=== PATIENT | male | born 1955 | race Caucasian/White ===

== ENCOUNTER 2019-04-18 08:36 | Emergency (ER) | payer OTHER, SELFPAY ==
[2019-04-18 08:37] VITALS: BP 193/111; PULSE 75; RESP 17; TEMP 36.9; O2SAT 96; BMI 24.7
--- NOTE | 2019-04-18 08:43 | EKG12_ITS ---
Test Reason : Blood Pressure : / mmHG Vent. Rate : 073 BPM Atrial Rate : 073 BPM P-R Int : 164 ms QRS Dur : 096 ms QT Int : 390 ms P-R-T Axes : 056 057 075 degrees QTc Int : 429 ms Normal sinus rhythm Normal ECG Confirmed by RUDY FLORES, MORIS ([id number]), greeting card editor TANESHA MANUEL ([id number]) on 04/22/2019 2:16:31 PM Referred By: Fredo Garcia Confirmed By:TERELL GRANT MD
--- NOTE | 2019-04-18 08:44 | CT_ITS ---
STUDY: CT BRAIN WITHOUT CONTRAST REASON FOR EXAM: Male, 63 years old. WEAKNESS, SYNCOPE RADIATION DOSAGE (If Supplied By Facility): CTDIvol = ( 44.99 ) mGy, DLP = ( 846.73 ) mGycm TECHNIQUE: Transaxial CT imaging of the brain was performed without administration of intravenous contrast material. Individualized dose optimization techniques were used for this CT. COMPARISON: No relevant priors. FINDINGS: Normal soft tissue structures. Normal calvarium. There is mild cerebral atrophy with widening of the extra-axial spaces and ventricular dilatation. There are areas of decreased attenuation within the white matter tracts of the supratentorial brain, consistent with microvascular disease changes. Tiny hypodensity in the body of the left caudate nucleus. Tiny lucency in the left thalamus. Tiny lacunae in the left basal ganglion. Normal brainstem. Normal cerebellum. There is no intracranial hemorrhage. There are no findings of an acute ischemic infarction. Partial opacification of the maxillary sinuses worse on the right side as well as air-fluid level in the right sphenoid sinus. Mucosal thickening of the ethmoid sinuses. CT/Brain/Head without Contrast IMPRESSION: Tiny lucencies in the left basal ganglion as well as the left thalamus and left pacheco radiata. Sinusitis. Electronically Signed: Dewayne Rahman, at 9:13 EST , Service support ,
--- NOTE | 2019-04-18 08:49 | RAD_ITS ---
STUDY: X-RAY CHEST REASON FOR EXAM: Male, 63 years old. C/O MULTIPLE EPISODES OF SYNCOPE SINCE LAST MONDAY, CP, HTN TECHNIQUE: Single AP portable view of the chest. COMPARISON: None. FINDINGS: EKG electrodes are seen. Minimal increased markings at the left lung base suggestive of left basilar atelectasis. There is no demonstrated pleural abnormality. Normal size heart. Normal mediastinum and rick. Normal visualized pulmonary arteries. Normal visualized aortic arch and descending thoracic aorta. There are diffuse degenerative changes of the visualized thoracic spine. Normal visualized ribs, clavicles, and shoulders. There is no demonstrated abnormality of the visualized soft tissue structures of the upper abdomen. RAD/Chest 1 View (Portable) IMPRESSION: Mild increased markings at the left lung base suggestive of left basilar atelectasis. Electronically Signed: Dewayne Rahman, at 9:02 EST , Service support ,
[2019-04-18 08:50] LABS: Absolute Lymphocyte Count 1.99 X10^3/uL (0.83-4.51); Absolute Neutrophil Count 5.2 X10^3/uL (2.0-7.7); Basophil# 0.04 X10^3/uL; Basophil% 0.5 % (0-1); Eosinophil# 0.19 X10^3/uL; Eosinophils% 2.3 % (0-5); Hematocrit 41.1 % (40-54); Hemoglobin 13.6 g/dL (13.0-16.5); Lymphocyte # 1.99 X10^3/ul (4.0); Mean Corp Hgb Conc 33.1 g/dL (32-36); Mean Corpuscular Hgb 29.4 pg (27.0-32.0); Mean Corpuscular Volume 88.8 fL (80-94); Mean Platelet Vol. 10.2 fl (6.2-12.0); Monocyte# 0.72 X10^3/uL; Monocyte% 8.7 % (0-10); NRBC Flagged by Analyzer 0 % (0-5); Neutrophil # 5.19 X10^3/uL (2.7-7.7); Neutrophil % 62.6 % (47-70); Platelet Count 274 K/mm3 (150-450); RBC Distribution Width CV 13.9 % (11.6-14.6); RBC Distribution Width SD 44.9 fl (35.1-43.9); Red Blood Count 4.63 M/mm3 (4.6-6.2); White Blood Count 8.3 K/mm3 (4.4-11.0)
--- NOTE | 2019-04-18 09:02 | ED.VIS.GEN ---
History of Present Illness Chief Complaint: Syncope Informant: Patient, Family Onset: Weeks Maximum Severity: Mild Narrative: Patient presents with family complaining of syncopal episodes. He denies any past history, indicates has not been ill other than a chronic cough,. He reports that about 1 week ago he was driving home he appears to have passed out was late coming home his family found him in his vehicle apparently sleeping in the cement mixer driver seat, he was aroused and taken home he did not recall being ill at that time anyway he had no incontinence he was not debilitated in any fashion. Then yesterday while at work sitting doing paperwork indicates he again seemed to have syncope for about 5 minutes while seated he woke on his own did not injure himself he had no incontinence no obvious seizure activity he spoke with his family doctor today and was asked to come to the emergency department for evaluation. He has no history of VA PE DVT seizure or stroke he indicates he is otherwise doing well he works driving a tow motor he is able to do all of his daily activities and work activities that difficulty, he is eating and drinking well bowel and bladder habits are normal review of systems are negative Past Medical History - Allergies and Home Meds Allergies/Adverse Reactions: Allergies No Known Allergies Allergy (Verified 04/18/19 08:41) Past Medical History: - Smoking Status: Current every day smoker Review of Systems ROS: - He denies General: Denies: Chills, Fever, Sweats Eyes: Denies: Visual changes - bilaterally, Diplopia ENT: Denies: Rhinorrhea, Sore throat Cardiovascular: Denies: Chest pain, Palpitations Respiratory: Denies: Dyspnea, Cough, Dyspnea on exertion Gastrointestinal: Denies: Abdominal pain, Nausea, Vomiting, Diarrhea, Melena, Hematochezia Genitourinary: Denies: Dysuria, Hematuria, Frequency Musculoskeletal: Denies: Back pain, Extremity Pain Skin: Denies: Rash, Wounds Neurological: Reports: - - Syncope as above. Denies: Headache, Weakness, Numbness Physical Exam Vital Signs/Narrative: Vital Signs Temp Pulse Resp BP Pulse Ox 04/18/19 08:37 98.5 F 75 17 193/111 H 96 General: Well nourished, Well developed, No Acute Distress Head: Normocephalic, Atraumatic Eyes: Perrl, EOMI ENT: Moist mucous membranes, No rhinorrhea Neck: Supple, Nontender Cardiovascular: Regular rate, Regular rhythm, No murmurs Respiratory: No distress, CTA bilaterally, Chest nontender Abdomen: Soft, Nontender, Nondistended, Normal bowel sounds Back: Nontender, Normal Inspection Extremities: Nontender, No edema Skin: Normal color, No rash Neurological: Alert, Oriented x3, Cranial nerves II-XII grossly intact, Normal Strength, Normal Sensation Psychological: Normal affect, Normal Mood Diagnostic/Tx/Re-eval - Medical Decision Making The patient's vital signs and exam are unremarkable he is awake and alert neurologically he is normal NIH 0 his EKG shows a sinus rhythm rate of 70 no injury pattern intervals normal see that report, Given all the above screening labs head CT The patient screening labs are all generally unremarkable, the head CT shows tiny lucencies in a few areas see those reports nothing acute they do note of sinusitis Discussed all the above with the patient and his [id number] discussed admission with the patient given all the above for further management and diagnostic evaluation we discussed differential discussed the concept of syncope life-threatening etiologies etc. he adamantly refused despite the urging of his roogpk-jf-rez to be admitted he does agree to follow-up with his outpatient providers Dr. Gilliam he will be started on Augmentin for the sinusitis he will rest avoid driving or operating machinery and return for change in symptoms, we will notify Dr. Zaman of the above Home stable declined admission Final impression, syncope, sinusitis ED Disposition - Plan for ED Patient: Diagnosis: Syncope, Sinusitis Instructions: SYNCOPE, Unk Cause, SINUSITIS, Abx Tx Prescriptions: Amox/Clavulanate Tablet [Augmentin Tablet] 875 mg PO Q12H #20 tab Prescription Printed Fluticasone Propionate [Flonase Allergy Relief] 15.8 ml NS BID #1 spray.susp Prescription Printed
[2019-04-18 09:07] LABS: Anion Gap 5 (5-15); BUN 16 mg/dL (7-18); BUN/Creat Ratio 14.3 RATIO (10-20); Calcium,Total 9.1 mg/dL (8.5-10.1); Chloride 103 mmol/L (98-107); Creatinine, Serum 1.12 mg/dL (0.70-1.30); EST Glomerular Filtration Rate 71 mL/min (>60); Est Glom Filt Rate - Afr Amer 86 mL/min (>60); Estimated Creatinine Clearance 78.28 ml/min; Glucose 87 mg/dL (74-106); Potassium 3.7 mmol/L (3.5-5.1); Sodium Level 136 mmol/L (136-145)
[2019-04-18 10:16] VITALS: BP 163/89; PULSE 68; RESP 16; O2SAT 96
[2019-04-18] MEDS: 0.9% Normal Saline 1,000 ML 999 ML IV (10:16)
[2019-04-18] MEDS: Ceftriaxone 1 GM/50 ML BAG IV (10:21)
== END 2019-04-18 11:25 | disposition home or self-care (01) ==
PROVIDERS: Emergency Provider Emergency Medicine; PCP Family Medicine
DX: R55 Syncope and collapse (principal); J32.9 Chronic sinusitis, unspecified; F17.200 Nicotine dependence, unspecified, uncomplicated
CPT/HCPCS: 36415; 70450; 71045; 80048; 80076; 80307; 82607; 83735; 84134; 84443; 84484; 85025; 93005; 96365; 99284; J7030; J7040; A4216

== ENCOUNTER → 2019-04-19 11:06 | Outpatient (CLI) | payer OTHER, SELFPAY ==
[2019-04-18 08:37] VITALS: BMI 24.7
[2019-04-19 13:05] LABS: Erythrocyte Sedimentation Rate 24 mm/hr (0-20)
[2019-04-19 13:36] LABS: AST(SGOT) 27 U/L (15-37); Alanine Aminotransfer ALT/SGPT 26 U/L (16-61); Albumin, Serum 3.2 g/dL (3.2-5.0); Alkaline Phosphatase 68 U/L (45-117); Bilirubin, Direct 0.13 mg/dL (0.00-0.30); Globulin 4.5 g/dL (2.2-4.2); Magnesium 2.4 mg/dL (1.6-2.6); Prealbumin 15.9 mg/dL (20.0-40.0); Protein, Total 7.7 g/dL (6.4-8.2); Thyroid Stim Hormone (TSH) 0.88 uIU/mL (0.358-3.74)
[2019-04-19 14:32] LABS: Amphetamine Urine VISTA NEGATIVE (<1000 ng/mL); Barbiturate Urine VISTA NEGATIVE (< 200 ng/mL); Benzodiazepine Urine VISTA NEGATIVE (< 200 ng/mL); Cocaine Urine VISTA NEGATIVE (< 300 ng/mL); Ecstacy Urine VISTA NEGATIVE (< 500 ng/mL); Methadone Urine VISTA NEGATIVE (< 300 ng/mL); PCP Urine VISTA NEGATIVE (< 25 ng/mL); THC Urine VISTA NEGATIVE (< 50 ng/mL); Vista UDS pH Range 6
[2019-04-23 09:26] LABS: Vitamin B12 886 pg/mL (211-911)
== END ==
PROVIDERS: PCP Family Medicine; Referring Provider Family Medicine; Visit Provider Family Medicine
DX: R55 Syncope and collapse (principal); R63.4 Abnormal weight loss
CPT/HCPCS: 36415; 80076; 80307; 82607; 83735; 84134; 84443; 85652

== ENCOUNTER → 2021-09-18 | Outpatient (CLI) | payer BC, SELFPAY ==
--- NOTE | 2021-09-18 08:44 | CT_ITS ---
STUDY: LOW DOSE CT LUNG CANCER SCREENING REASON FOR EXAM: Male, 66 years old. TOBACCO ABUSE, 50 pack-year history. RADIATION DOSAGE (If Supplied By Facility): CTDIvol = ( 3.02 ) mGy, DLP = ( 121.92 ) mGycm TECHNIQUE: No contrast was administered. Low dose technique was utilized (average mAS-38 and kVp 120). 1.25 mm axial source images with a slice interval of 1.25-mm were reconstructed in lung windows. 2.5 mm axial source images with a slice interval of 2.5-mm were reconstructed in lung windows. 5.0 mm axial source images with a slice interval of 5.0-mm were reconstructed in soft tissue windows. COMPARISON: None. NODULES: Triangular nodule along the right minor fissure measures 4.5 mm on image 156 of series 2. No additional pulmonary nodules. Emphysema: Mild paraseptal emphysema. Endobronchial lesion: None. Mild bronchiectasis. Aorta: Normal caliber, tortuous. CORONARY ARTERIES: Coronary artery calcification is seen. Heart: Normal size Pulmonary artery: Unremarkable. Unopacified technique. Mediastinal nodes: No adenopathy Other chest and abdominal findings: Degenerative changes of the spine. CT/Low Dose CT Lung Screening IMPRESSION: Lung-RADS category 2 - Continue annual screening with LDCT in 12 months. IMPORTANT NOTES FOR USE: ACR Lung-RADS Version 1.1 Assessment Categories Release Date: 2018 Category: Coded 0-4 bases on nodule(s) with highest degree of suspicion. Negative screen is defined as categories 1 and 2; a positive screen is defined as categories 3 and 4. Category 3 and 4A nodules that are unchanged on interval CT should be coded as category 2, and individuals returned to screening in 12 months. Category 4X: Category 3 or 4 nodules with additional imaging findings that increase the suspicion of lung cancer, such as spiculation, GGN that doubles in size in 1 year, enlarged lymph notes, etc. Category Modifiers: S (significant finding unrelated to lung cancer) Electronically Signed: Kwame Vieira MD ([place]) at 22:40 EDT ,
== END | disposition home or self-care (01) ==
LOC: CT 08:44
PROVIDERS: PCP Family Medicine; Visit Provider Family Medicine
DX: F17.210 Nicotine dependence, cigarettes, uncomplicated (principal)
CPT/HCPCS: 71271

== ENCOUNTER → 2021-09-20 | Outpatient (CLI) | payer BC, SELFPAY ==
[2021-09-20 18:28] LABS: Anion Gap 5 (5-15); BUN 25 mg/dL (7-18); BUN/Creat Ratio 25.1 RATIO (10-20); Calcium,Total 8.9 mg/dL (8.5-10.1); Chloride 107 mmol/L (98-107); Cholesterol 184 mg/dL (200); EST Glomerular Filtration Rate 80 mL/min (>60); Est Glom Filt Rate - Afr Amer 97 mL/min (>60); Glucose 90 mg/dL (74-106); High Density Lipoprotein 50 mg/dL; PSA,Total - Annual Screen 0.67 ng/mL (0.00-4.00); Sodium Level 138 mmol/L (136-145); Triglycerides 190 mg/dL; Very Low Density Lipoprotein 38 mg/dL (5-40)
== END | disposition home or self-care (01) ==
LOC: MFPLAB 16:32
PROVIDERS: PCP Family Medicine; Referring Provider Family Medicine; Visit Provider Family Medicine
DX: I10 Essential (primary) hypertension (principal); Z12.5 Encounter for screening for malignant neoplasm of prostate
CPT/HCPCS: 36415; 80048; 80061; 84153; G0103

== ENCOUNTER → 2022-09-16 | Outpatient (CLI) | payer BC, SELFPAY ==
--- NOTE | 2022-09-16 15:15 | RAD_ITS ---
ACR Level 3 findings have been noted. An addendum which confirms receipt of the report will follow. INDICATION: PAIN EXAMINATION/TECHNIQUE: X-RAY - XR Spine Lumbar Comp W/ Bending Min 6 Views COMPARISON: FINDINGS: VERTEBRAE: There is mild anterior wedging of the T11 and T12 vertebral bodies. No fracture. No spondylolisthesis. Preservation of the normal lumbar lordosis. There is extensive multilevel osteophyte formation and disc space narrowing and endplate spondylosis. INCLUDED ABDOMEN: Included bowel gas pattern is non-obstructive. RAD/L/S Spine w Bend Min 6 Vw IMPRESSION: Degenerative changes. There is mild anterior wedging of the T11 and T12 vertebral bodies of indeterminate age. MRI may be helpful for further evaluation. Electronically Signed: Jamil Pierson, at 16:04 EDT ,
== END | disposition home or self-care (01) ==
LOC: RAD 15:13
PROVIDERS: PCP Family Medicine; Referring Provider Family Medicine; Visit Provider Family Medicine
DX: M54.9 Dorsalgia, unspecified (principal)
CPT/HCPCS: 72114

== ENCOUNTER → 2022-09-23 | Outpatient (CLI) | payer BC, SELFPAY ==
--- NOTE | 2022-09-23 18:42 | CT_ITS ---
STUDY: LOW DOSE CT LUNG CANCER SCREENING REASON FOR EXAM: Male, 67 years old. tobacco use disorder RADIATION DOSAGE (If Supplied By Facility): CTDIvol = ( 3.02 ) mGy, DLP = ( 110.98 ) mGycm TECHNIQUE: No contrast was administered. Low dose technique was utilized (average mAS-38 and kVp 120). 1.25 mm axial source images with a slice interval of 1.25-mm were reconstructed in lung windows. 2.5 mm axial source images with a slice interval of 2.5-mm were reconstructed in lung windows. 5.0 mm axial source images with a slice interval of 5.0-mm were reconstructed in soft tissue windows. COMPARISON: None. Emphysema: Mild emphysema. No change in a 5 mm noncalcified nodule in the superior right middle lobe adjacent to the minor fissure likely consistent with a scar or perifissural lymph node. No new noncalcified nodule or mass. Endobronchial lesion: None Aorta: Some calcified plaque in the aortic arch but no aortic aneurysm. CORONARY ARTERIES: Coronary artery calcification is seen. Heart: No cardiomegaly. Pulmonary artery: Normal Mediastinal nodes: Normal Other chest and abdominal findings: None CT/Low Dose CT Lung Screening IMPRESSION: Lung-RADS category 2 - Continue annual screening with LDCT in 12 months. IMPORTANT NOTES FOR USE: ACR Lung-RADS Version 1.1 Assessment Categories Release Date: 2018 Category: Coded 0-4 bases on nodule(s) with highest degree of suspicion. Negative screen is defined as categories 1 and 2; a positive screen is defined as categories 3 and 4. Category 3 and 4A nodules that are unchanged on interval CT should be coded as category 2, and individuals returned to screening in 12 months. Category 4X: Category 3 or 4 nodules with additional imaging findings that increase the suspicion of lung cancer, such as spiculation, GGN that doubles in size in 1 year, enlarged lymph notes, etc. Category Modifiers: S (significant finding unrelated to lung cancer) Electronically Signed: Alexei Sparks MD at 18:38 EDT ,
== END | disposition home or self-care (01) ==
LOC: CT 18:38
PROVIDERS: PCP Family Medicine; Referring Provider Family Medicine; Visit Provider Family Medicine
DX: Z12.2 Encounter for screening for malignant neoplasm of respiratory organs (principal); F17.200 Nicotine dependence, unspecified, uncomplicated
CPT/HCPCS: 71271

== ENCOUNTER → 2022-10-07 | Outpatient (CLI) | payer BC, SELFPAY ==
[2022-10-07 18:10] LABS: Vitamin D,25 Hydroxy 26.5 ng/mL
[2022-10-07 18:13] LABS: Anion Gap 6 (5-15); BUN 21 mg/dL (7-18); BUN/Creat Ratio 15.9 RATIO (10-20); Calcium,Total 9.4 mg/dL (8.5-10.1); Chloride 106 mmol/L (98-107); Cholesterol 167 mg/dL (200); Creatinine, Serum 1.32 mg/dL (0.70-1.30); EST Glomerular Filtration Rate 58 mL/min (>60); Est Glom Filt Rate - Afr Amer 70 mL/min (>60); Glucose 135 mg/dL (74-106); High Density Lipoprotein 44 mg/dL; Magnesium 2.3 mg/dL (1.6-2.6); PSA,Total - Annual Screen 1.67 ng/mL (0.00-4.00); Phosphorus 3.8 mg/dL (2.5-4.9); Potassium 4.1 mmol/L (3.5-5.1); Sodium Level 138 mmol/L (136-145); Triglycerides 135 mg/dL; Very Low Density Lipoprotein 27 mg/dL (5-40)
[2022-10-10 08:42] LABS: PTHIN 70.7 pg/mL (18.4-80.1)
== END | disposition home or self-care (01) ==
LOC: MFPLAB 15:09
PROVIDERS: PCP Family Medicine; Visit Provider Family Medicine
DX: Z12.5 Encounter for screening for malignant neoplasm of prostate (principal); I10 Essential (primary) hypertension; E78.2 Mixed hyperlipidemia; M81.0 Age-related osteoporosis without current pathological fracture
CPT/HCPCS: 36415; 80048; 80061; 82306; 83735; 83970; 84100; 84153; G0103

== ENCOUNTER → 2022-10-20 | Outpatient (CLI) | payer BC, SELFPAY ==
--- NOTE | 2022-10-20 16:13 | BD_ITS ---
STUDY: DUAL ENERGY X-RAY ABSORPTIOMETRY / DXA REASON FOR EXAM: Male, 67 years old. M81.0 TECHNIQUE: Bone Mineral Density (BMD) measurements of lumbar spine and bilateral hips were obtained. COMPARISON: None. FINDINGS: Lumbar Spine (L1-L4): g/cm2 (1.321) / T-score (2.4) / Z-score (3.1) Findings are suggestive of normal bone density with a low fracture risk. Left Femur Total: g/cm2 (1.099) / T-score (0.4) / Z-score (0.9) Left Femoral Neck: g/cm2 (0.861) / T-score (-0.5) / Z-score (0.5) Right Femur Total: g/cm2 (0.964) / T-score (-0.5) / Z-score (0.1) Right Femoral Neck: g/cm2 (0.729) / T-score (-1.5) / Z-score (-0.4) BD/Dexa Bone Density Study IMPRESSION: The patient is considered osteopenic as outlined below according to World Win Organization (WHO) criteria with a low fracture risk. Reference Information: The T-score is the number of standard deviations above or below the standard which is normal for young adults at their peak bone mineral density. The World Health Organization (WHO) interprets the T-scores as follows: Above -1 Normal bone density Between -1 and -2.5 Osteopenia Equal to / or below -2.5 Osteoporosis As a practical clinical guideline, osteopenia may be graded as follows: Mild -1 through -1.5 Moderate -1.6 through -2.0 Severe -2.1 through -2.4 The Z-score is the number of standard deviations above or below age-matched controls. A Z-score of less than -1.5 would be considered abnormal. References: 1. NIH Osteoporosis and Related Bone Diseases www osteo.org 2. International Society for Clinical Densitometry www iscd.org 3. National Osteoporosis Foundation www nof.org Electronically Signed: Dewayne Rahman MD at 15:29 EDT ,
== END | disposition home or self-care (01) ==
LOC: OPBD 16:08
PROVIDERS: PCP Family Medicine; Referring Provider Family Medicine; Visit Provider Family Medicine
DX: M81.0 Age-related osteoporosis without current pathological fracture (principal)
CPT/HCPCS: 77080

== ENCOUNTER → 2022-11-07 | Outpatient (CLI) | payer BC, SELFPAY ==
[2022-11-07 18:51] LABS: Anion Gap 10 (5-15); BUN 21 mg/dL (7-18); BUN/Creat Ratio 21.6 RATIO (10-20); Calcium,Total 9.2 mg/dL (8.5-10.1); Chloride 104 mmol/L (98-107); Creatinine, Serum 0.97 mg/dL (0.70-1.30); EST Glomerular Filtration Rate 83 mL/min (>60); Est Glom Filt Rate - Afr Amer 100 mL/min (>60); Glucose 120 mg/dL (74-106); Potassium 4.1 mmol/L (3.5-5.1); Sodium Level 136 mmol/L (136-145)
== END | disposition home or self-care (01) ==
LOC: MFPLAB 16:27
PROVIDERS: PCP Family Medicine; Visit Provider Family Medicine
DX: I10 Essential (primary) hypertension (principal)
CPT/HCPCS: 36415; 80048

== ENCOUNTER → 2023-04-07 | Outpatient (CLI) | payer BC, SELFPAY ==
--- NOTE | 2023-04-07 10:30 | MRI_ITS ---
STUDY: MRI THORACIC SPINE WITHOUT CONTRAST REASON FOR EXAM: Male, 67 years old. WEDGING ON X-RAY T11-T12 TECHNIQUE: Standardized fat and water weighted pulse sequences were obtained in the sagittal and axial planes. COMPARISON: None. FINDINGS: Normal kyphosis of the thoracic spine. There is no substantial scoliosis. T1-2, T2-3, T3-4, T4-5, T5-6, T6-7, T7-8, T8-9, T9-10, T10-11, T11-12: Anterior wedging of T7, T8, T9, T10, T11 and T12 vertebral bodies without edema due to remote fractures. No suspicious bony edema to suspect recent fractures throughout the thoracic spine. Minimal ventral extradural defect at T8-T9 and T12-L1 disc space levels due to posterior bulging annulus. Normal remaining thoracic vertebral body heights. No extruded disc fragment or disc protrusion. Normal central canal and bilateral intervertebral neural foramina. Normal visualized thoracic cord. Normal conus medullaris that terminates at the lower L1 vertebral body level. The soft tissue structures are unremarkable. MRI/Spine Thoracic (Routine) IMPRESSION: 1. No MRI evidence of recent or acute fractures of the thoracic spine. 2. Multiple old anterior wedge compression fractures involving T7 down to T12 vertebral bodies. 3. No MRI evidence of thoracic extruded disc fragment, disc protrusion or spinal stenosis. 4. Normal thoracic spinal cord. Electronically Signed: Shai Andujar MD at 12:01 EST ,
--- OUTSIDE RECORDS SUMMARY | 2023-04-07 10:44 | XMS RPT_ITS | CCD ---
Author Name Unknown Address [address] [place] [address] Organization [facility] Results Test Name Value Interpretation Reference Range Facil ity Progress note 02-23-2021 Note Date & Type Note Facility 02-23-2021 Note HNO ID: [id number] Author: Wali Andrews APRN.AMPLIFIER MECHANIC Service: ? Author Type: Nurse Practitioner Type: Progress Notes Filed: 02/23/2021 7:48 AM Note Text: Subjective HPI Nontoxic-appearing male presents urgent care chief complaint COVID-19 concerns. Duration of symptoms 2 days. Associated symptoms cough nasal congestion. Patient states 2 individuals in his house tested positive for COVID-19. Presents today for COVID-19 testing. States he does not feel overly poor. States the only reason here is to ensure he does not have COVID-19. Denies any OTC medication use. Denies any pain. Denies any productive cough chest pain fever body aches chills nausea vomiting hemoptysis headache dizziness change in bowel or bladder habits. Past medical history prescription medication use allergies reviewed. .Patient presents with: Cough: cough and exposurex 2 days PAST MEDICAL HISTORY Diagnosis Date - Hypertension, uncontrolled 05/05/2018 - NEGATIVE MEDICAL HISTORY PAST SURGICAL HISTORY Procedure Laterality Date - KNEE SCOPE,DIAGNOSTIC Arthroscopy, knee - left - PAST SURGICAL HISTORY OF 2008 removal bryan cyst ALLERGIES Patient has no known allergies. MEDICATIONS amLODIPine (NORVASC) 10 mg tablet Take 1 tablet by mouth once daily. cetirizine (ZYRTEC) 10 mg tablet Take 10 mg by mouth once daily. lisinopril (ZESTRIL, PRINIVIL) 40 mg tablet Take 1 tablet by mouth once daily. triamcinolone (KENALOG) 0.025 % cream Apply 1 application to affected area twice daily. hydrOXYzine HCl (ATARAX) 50 mg tablet Take 1 tablet by mouth every 4 hours as needed. albuterol HFA (PROAIR HFA) 90 mcg/actuation inhaler Inhale 2 Puffs as instructed every 4 hours as needed. guaiFENesin (MUCINEX) 600 mg 12 hr tablet Take 2 tablets by mouth twice daily. aspirin(ADULT LOW DOSE ASPIRIN 81 MG TAB, DELAYED RELEASE) Take one(1) tablet daily. multivitamins(DAILY VITAMIN TAB) Take one(1) tablet daily. FAMILY HISTORY Problem Relation Age of Onset - Ischemic Heart Disease Father - Diabetes Mother - Diabetes Maternal Grandfather - Stroke Father Social History Tobacco Use - Smoking status: Current Every Day Smoker Packs/day: 1.00 Years: 30.00 Pack years: 30.00 Types: Cigarettes - Smokeless tobacco: Never Used Vaping Use - Vaping Use: Never used Substance Use Topics - Alcohol use: No - Drug use: No BP 142/82 Pulse 88 Temp 37.2 ?C (98.9 ?F) (Tympanic) Resp 16 Wt 95.2 kg (209 lb 12.8 oz) SpO2 99% Review of Systems Constitutional: Negative for chills, fever and malaise/fatigue. HENT: Positive for congestion. Negative for ear discharge, ear pain, sinus pain and sore throat. Eyes: Negative for blurred vision, pain, discharge and redness. Respiratory: Positive for cough. Negative for hemoptysis, sputum production, shortness of breath, wheezing and stridor. Cardiovascular: Negative for chest pain. Gastrointestinal: Negative for abdominal pain, diarrhea, nausea and vomiting. Musculoskeletal: Negative for myalgias. Skin: Negative for itching and rash. Neurological: Negative for dizziness and headaches. Objective Physical Exam Constitutional: General: He is not in acute distress. Appearance: He is not diaphoretic. HENT: Head: Normocephalic. Mouth/Throat: Mouth: Mucous membranes are moist. Pharynx: Oropharynx is clear. No oropharyngeal exudate or posterior oropharyngeal erythema. Eyes: Conjunctiva/sclera: Conjunctivae normal. Pupils: Pupils are equal, round, and reactive to light. Cardiovascular: Rate and Rhythm: Normal rate and regular rhythm. Heart sounds: Normal heart sounds. Pulmonary: Effort: Pulmonary effort is normal. No tachypnea, accessory muscle usage or respiratory distress. Breath sounds: Normal breath sounds. No stridor. Abdominal: Palpations: Abdomen is soft. Tenderness: There is no abdominal tenderness. Musculoskeletal: Cervical back: Normal range of motion and neck supple. No rigidity or tenderness. Lymphadenopathy: Cervical: No cervical adenopathy. Skin: General: Skin is warm and dry. Neurological: Mental Status: He is alert and oriented to person, place, and time. ASSESSMENT/PLAN: 1. Suspected COVID-19 virus infection - ICD9: V01.79, ICD10: Z20.822 - COVID WITH FLUA+B, ROUTINE COVID-19 test ordered results pending alternative diagnosis discussed home quarantine recommended. We discussed monoclonal antibody therapy. We discussed that patient would be a good candidate for this. Contact PCP if positive to discuss monoclonal antibody therapy. Patient was educated on supportive therapies. Patient will follow up with primary care provider as needed. Patient was instructed to immediately proceed to emergency room for any new, worsening, or symptoms lasting longer than anticipated. The patient's clinical presentation is otherwise unremarkable at this time. Based on exam and clinical finding, the patient is stable for (more content not included)... [facility] Summary Purpose Family History No Family History Records Found Advance Directives No Advanced Directives Records Found Additional Source Comments (unrecognized sect ion and content) No Status Records Found INFORMATION SOURCE (unrecogn ized section and content) FOR RECORDS PERTAINING TO PATIENTS WHO ARE OR HAVE BEEN ENROLLED IN A CHEMICAL DEPENDENCY/SUBSTANCEABUSE PROGRAM, SOME INFORMATION MAY BE OMITTED. This clinical summary was aggregated from multiple sources. Caution should be exercised in using it in the provision of clinical care. This summary normalizes information from multiple sources, and as a consequence, information in this document may materially change the coding, format and clinical context of patient data. In addition, data may be omitted in some cases. CLINICAL DECISIONS SHOULD BE BASED ON THE PRIMARY CLINICAL RECORDS. [employer]. provides no warranty or guarantee of the accuracy or completeness of information in this document.
== END | disposition home or self-care (01) ==
PROVIDERS: PCP Family Medicine; Referring Provider Family Medicine; Visit Provider Family Medicine
DX: M54.40 Lumbago with sciatica, unspecified side (principal)
CPT/HCPCS: 72146

== ENCOUNTER → 2023-05-11 | Outpatient (CLI) | payer BC, SELFPAY ==
[2023-05-11 18:15] LABS: Anion Gap 8 (5-15); BUN 20 mg/dL (7-18); BUN/Creat Ratio 17.7 RATIO (10-20); Calcium,Total 9.4 mg/dL (8.5-10.1); Chloride 102 mmol/L (98-107); Creatinine, Serum 1.13 mg/dL (0.70-1.30); EST Glomerular Filtration Rate 69 mL/min (>60); Est Glom Filt Rate - Afr Amer 84 mL/min (>60); Glucose 91 mg/dL (74-106); Potassium 3.9 mmol/L (3.5-5.1); Sodium Level 138 mmol/L (136-145)
--- OUTSIDE RECORDS SUMMARY | 2023-05-11 22:32 | XMS RPT_ITS | CCD ---
Author Name Unknown Address [address] [place] [address] Organization [facility] Results Test Name Value Interpretation Reference Range Facil ity Progress note 02-23-2021 Note Date & Type Note Facility 02-23-2021 Note HNO ID: [id number] Author: Wali Andrews APRN.STREET SUPERVISOR Service: ? Author Type: Nurse Practitioner Type: [...] is stable for (more content not included)... [facility] Summary Purpose Family History No Family History [...] BE BASED ON THE PRIMARY CLINICAL RECORDS. [email or web address] [facility]. provides no warranty or guarantee of the accuracy or completeness of information in this document.
== END | disposition home or self-care (01) ==
LOC: MFPLAB 16:51
PROVIDERS: PCP Family Medicine; Visit Provider Family Medicine
DX: I10 Essential (primary) hypertension (principal)
CPT/HCPCS: 36415; 80048

== ENCOUNTER → 2024-09-16 | Outpatient (CLI) | payer SELFPAY ==
[2024-09-16 18:15] LABS: Anion Gap 12 (5-15); BUN 23 mg/dL (4-19); BUN/Creat Ratio 21.0 RATIO (10-20); Calcium,Total 9.7 mg/dL (7.6-11.0); Carbon Dioxide 24.4 mmol/L (21.0-32.0); Chloride 103 mmol/L (98-108); Glucose 93 mg/dL (70-99); PSA,Total - Annual Screen 0.87 ng/mL (0.02-4.00); Potassium 4.1 mmol/L (3.3-5.1)
[2024-09-16 19:56] LABS: Creatinine, Urine (random) 192.00 mg/dL (39.00-259.00); Microalbumin,Random Urine 29.7 mg/L (<20 mg/L)
== END | disposition home or self-care (01) ==
PROVIDERS: PCP Family Medicine; Visit Provider Nurse Practitioner Family
DX: I10 Essential (primary) hypertension (principal); Z12.5 Encounter for screening for malignant neoplasm of prostate; Z13.1 Encounter for screening for diabetes mellitus
CPT/HCPCS: 36415; 80048; 82043; 82570; 83036; 84153; G0103